=== PATIENT | female | born 1990 | race Caucasian/White ===

== ENCOUNTER 2019-07-09 03:04 | Emergency (ER) | payer SELFPAY ==
[~2019-07-09] VITALS: Ht 170.2 cm; Wt 63.5 kg
--- NOTE | 2019-07-09 03:25 | NUR ---
Patient ambulated with stable gait. A/Ox4. Speech clear, speaks in complete sentences. Patient c/o LLE swelling. Patient states that for work she is sitting for extended periods of time with her left knee on the chair and believes that may be the culprit. Denies any chest discomfort or shortness of breath.
[2019-07-09 04:08] LABS: *URINE HCG, QUAL NEGATIVE (NEGATIVE)
--- NOTE | 2019-07-09 04:21 | NUR ---
US tech at bedside for scan.
--- NOTE | 2019-07-09 04:49 | NUR ---
Patient discharged to home in stable conditon. Written and verbal after care instructions given. Patient verbalizes understanding of instructions. Patient ambulated with stable gait.
[2019-07-09 04:50] VITALS: BP 111/72
== END 2019-07-09 04:50 | disposition home or self-care (01) ==
LOC: ER 03:13
DX: R60.9 Edema, unspecified (principal); Z88.0 Allergy status to penicillin
CPT/HCPCS: 84703; A4663